=== PATIENT | male | born 1970 | race African-American/Black ===

== ENCOUNTER 2022-01-26 07:49 | Inpatient (IN) | payer SELFPAY ==
[2022-01-26 08:38] LABS: #Eosinphils 0.1 thou/uL (0.0-0.7); #Lymphocytes 1.5 thou/uL (1.20-3.40); #Monocytes 0.6 thou/uL (0.11-0.59); #Neutrophils 2.1 thou/uL (1.40-6.50); %Basophils 0.4 % (0.0-1.0); %Eosinophils 1.5 % (0.0-10.0); %Lymphocytes 34.8 % (21.0-51.0); %Monocytes 14.5 % (0.0-10.0); %Neutrophils 48.8 % (42.0-75.0); Hemoglobin 14.7 g/dL (14.0-18.0); Mean Corpuscular Hemoglobin 35.2 pg (27.0-31.0); Mean Platelet Volume 6.6 fL (7.4-10.4); Platelet Count 230 thou/uL (130-400); RBC Distribution Width 11.7 % (11.5-14.5); Red Blood Cell (RBC) Count 4.17 mill/uL (4.70-6.10); White Blood Cell (WBC) Count 4.4 thou/uL (4.8-10.8)
[2022-01-26 09:07] LABS: Acetaminophen Less than 10.0 mcg/mL (10.0-30.0); Alcohol Less than 10 mg/dL (Less than 10); Salicylate Less than 8.0 mg/dL (15.0-30.0)
[2022-01-26 09:08] LABS: ALT (SGPT) 37 U/L (8-55); AST (SGOT) 56 U/L (5-34); Albumin 3.9 g/dL (3.5-5.0); Alkaline Phosphatase 79 U/L (40-110); Anion Gap 12 mmol/L (10-20); BUN (Urea Nitrogen) 12 mg/dL (8.9-20.6); Bilirubin, Total 0.4 mg/dL (0.2-1.2); CK (CPK) 3807 U/L (30-200); Calc. Creatinine Clearance 0 mL/min (70-130); Calcium 9.1 mg/dL (7.8-10.44); Carbon Dioxide 24 mmol/L (22-29); Chloride 107 mmol/L (98-107); Estimated GFR 92; Globulin 2.9 g/dL (2.4-3.5); Glucose 112 mg/dL (70-105); Protein, Total 6.8 g/dL (6.0-8.3); Sodium 139 mmol/L (136-145)
[2022-01-26] MEDS ORDERED: Acetaminophen 325 MG TAB PO PRN (09:56)
[2022-01-26] MEDS ORDERED: Guaifenesin DM 100-10/5 ML UDCUP PO PRN (09:56)
[2022-01-26] MEDS ORDERED: HYDROcodone/Acetaminophen 5/325 mg Tablet PO PRN (09:56)
[2022-01-26] MEDS ORDERED: Senokot S 8.6-50 MG TAB PO PRN (09:56)
[2022-01-26] MEDS ORDERED: Ondansetron PF 4 MG/2 ML Vial IVP PRN (09:56)
[2022-01-26] MEDS ORDERED: Ondansetron ODT 4 MG TAB PO PRN (09:56)
[2022-01-26 10:40] LABS: Prothrombin Time 12.8 sec (12.0-14.7)
[2022-01-26 10:41] LABS: PTT 30.6 sec (22.9-36.1)
[2022-01-26 11:35] VITALS: BMI 27.8
[2022-01-26 14:45] LABS: Bacteria/HPF None Seen HPF (None Seen); Bilirubin Negative (Negative); Blood, Urine Negative (Negative); Clarity Clear (Clear); Glucose, Urine (Dipstick) Normal (Negative); Ketone, Urine Negative (Negative); Leukocyte Negative Leu/uL (Negative); Nitrite Negative (Negative); Protein, Urine (Dipstick) Negative (Neg-Trace); RBC/HPF 0-3 HPF (0-3); Specific Gravity, Urine 1.011 (1.002-1.036); Squamous Epithelial None Seen HPF (0-3); Urobilinogen Normal mg/dL (Less than 2); WBC/HPF 0-3 HPF (0-3)
[2022-01-26] MEDS ORDERED: Iopamidol-370 76% 500 ML 1 ML ONE (15:23)
[2022-01-26] MEDS: Famotidine 20 MG TAB PO SCH (20:02)
[2022-01-27] MEDS: Sodium Chloride 0.9% 1,000 ML IV SCH ×5 (02:35→23:43)
[2022-01-27 05:52] LABS: #Basophils 0.1 thou/uL (0.0-0.2); #Eosinphils 0.1 thou/uL (0.0-0.7); #Monocytes 0.5 thou/uL (0.11-0.59); #Neutrophils 2.1 thou/uL (1.40-6.50); %Basophils 1.1 % (0.0-1.0); %Eosinophils 2.1 % (0.0-10.0); %Monocytes 10.7 % (0.0-10.0); %Neutrophils 44.1 % (42.0-75.0); Hemoglobin 14.5 g/dL (14.0-18.0); Mean Corpuscular HGB CONC 33.3 g/dL (32.0-36.0); Mean Corpuscular Hemoglobin 34.7 pg (27.0-31.0); Mean Platelet Volume 6.4 fL (7.4-10.4); Platelet Count 226 thou/uL (130-400); RBC Distribution Width 11.7 % (11.5-14.5); Red Blood Cell (RBC) Count 4.17 mill/uL (4.70-6.10); White Blood Cell (WBC) Count 4.7 thou/uL (4.8-10.8)
[2022-01-27 06:21] LABS: Anion Gap 11 mmol/L (10-20); BUN (Urea Nitrogen) 10 mg/dL (8.9-20.6); Calc. Creatinine Clearance 125 mL/min (70-130); Calcium 8.9 mg/dL (7.8-10.44); Carbon Dioxide 24 mmol/L (22-29); Chloride 108 mmol/L (98-107); Estimated GFR 99; Glucose 108 mg/dL (70-105); Potassium 4.2 mmol/L (3.5-5.1); Sodium 139 mmol/L (136-145)
[2022-01-27] MEDS ORDERED: Enoxaparin Sodium 40 MG/0.4 ML SYRINGE SC SCH (09:00)
[2022-01-27] MEDS: Famotidine 20 MG TAB PO SCH (15:40)
[2022-01-27] MEDS ORDERED: Folic Acid 1 MG TAB PO SCH (21:00)
[2022-01-27] MEDS ORDERED: Multivit, Therapeutic 1 TAB PO SCH (21:00)
[2022-01-27] MEDS ORDERED: Thiamine 100 MG TAB PO SCH (21:00)
[2022-01-27] MEDS ORDERED: Cyanocobalamin (Vitamin B-12) 1,000 MCG TAB PO SCH (21:00)
[2022-01-28 07:46] VITALS: BP 136/81; TEMP 97.7
[2022-01-28] MEDS ORDERED: Senokot S 8.6-50 MG TAB PO SCH (09:00)
[2022-01-28 10:54] LABS: Cardiolipin IgA Ab 2.1 APL-U/mL (<14 Negative); Cardiolipin IgG Ab 1.1 GPL-U/mL (<10 Negative); Cardiolipin IgM Ab 0.9 MPL-U/mL (<10 Negative); EliA APS New Method **** NEW METHOD ****
[2022-01-30 13:05] LABS: Factor VIII Test 226.4 % ACTIVE (56-157)
[2022-01-30 14:12] LABS: Protein C Activity 87 % (78-152)
== END 2022-01-28 10:25 | disposition home or self-care (01) | DRG 558 ==
LOC: ERS 07:49 → SURG A 10:58
PROVIDERS: ADMIT Internal Medicine; ATTEND Internal Medicine
DX: M62.82 Rhabdomyolysis (principal); Z20.822 Contact with and (suspected) exposure to COVID-19; I08.1 Rheumatic disorders of both mitral and tricuspid valves; E86.0 Dehydration; D75.89 Other specified diseases of blood and blood-forming organs; F10.20 Alcohol dependence, uncomplicated; N18.2 Chronic kidney disease, stage 2 (mild); E86.9 Volume depletion, unspecified; Z90.89 Acquired absence of other organs; Z83.2 Family history of diseases of the blood and blood-forming organs and certain disorders involving the immune mechanism; Z87.891 Personal history of nicotine dependence
CPT/HCPCS: 36415; 70450; 71275; 80048; 80053; 80307; 81001; 82550; 83090; 84484; 85025; 85240; 85300; 85303; 85305; 85307; 85379; 85598; 85610; 85730; 86147; 93005; 93306; 93880; J7050; Q9967; U0003; U0005

== ENCOUNTER 2022-03-03 17:10 | Emergency (ER) | payer SELFPAY ==
[2022-03-03] MEDS ORDERED: Ketorolac Tromethamine 30 MG/ML VIAL ONE (19:30)
== END 2022-03-03 20:28 | disposition home or self-care (01) ==
LOC: ERS 17:10
DX: M25.531 Pain in right wrist (principal); Z87.891 Personal history of nicotine dependence
CPT/HCPCS: 96372; J1885

== ENCOUNTER 2022-11-28 15:22 | Emergency (ER) | payer SELFPAY ==
[2022-11-28] MEDS ORDERED: Lidocaine 1% PF 5 ML VIAL ONE (16:59)
== END 2022-11-28 17:31 | disposition home or self-care (01) ==
LOC: ERS 15:22
DX: S67.21XA Crushing injury of right hand, initial encounter (principal); S62.634A Displaced fracture of distal phalanx of right ring finger, initial encounter for closed fracture; S60.141A Contusion of right ring finger with damage to nail, initial encounter; W23.0XXA Caught, crushed, jammed, or pinched between moving objects, initial encounter
CPT/HCPCS: 11740